=== PATIENT | female | born 2000 | race African-American/Black ===

== ENCOUNTER 2024-10-03 03:44 | Emergency (ER) | payer SELFPAY ==
[~2024-10-03] VITALS: Ht 167.6 cm; Wt 100.0 kg
[2024-10-03 03:48] VITALS: O2SAT 99
[2024-10-03] MEDS: CYCLOBENZAPRINE 10MG TABLET PO ONE (04:27)
[2024-10-03] MEDS: IBUPROFEN 800MG TABLET PO ONE (04:28)
[2024-10-03 04:30] LABS: CHLORIDE 107 mEq/L (98-107); POTASSIUM 3.8 mEq/L (3.5-5.1); SODIUM 143 mEq/L (136-145)
[2024-10-03 04:31] LABS: CARBON DIOXIDE 30 mEq/L (21-32)
[2024-10-03 04:36] LABS: CREATININE 0.9 mg/dL (0.6-1.0); GLUCOSE 84 mg/dL (70-105)
[2024-10-03 04:37] LABS: UREA NITROGEN BLOOD 7 mg/dL (9-23)
[2024-10-03] MEDS ORDERED: CYCL10TA21 MT (04:55)
[2024-10-03] MEDS ORDERED: NAPR-1176 MT (04:55)
[2024-10-03 05:29] VITALS: BP 101/63; PULSE 90; RESP 15; TEMP 36.6; O2SAT 95
== END 2024-10-03 05:29 | disposition home or self-care (01) ==
LOC: ER 03:44
DX: M79.604 Pain in right leg (principal); M79.605 Pain in left leg
CPT/HCPCS: 36415; 80048; 93970; 99284

== ENCOUNTER 2025-01-16 14:04 | Emergency (ER) | payer MEDICAID, OTHER ==
[~2025-01-16] VITALS: Ht 172.7 cm; Wt 110.0 kg
[~2025-01-16 14:04] MED LIST: APIX5TAB MT; HYDR200T80 MT; P20 MT
[2025-01-16 14:14] VITALS: O2SAT 99
[2025-01-16] MEDS: METOCLOPRAMIDE HCL 10MG/2ML VIAL IV ONE (15:45)
[2025-01-16] MEDS ORDERED: METHYLPREDNISOLONE 40MG/ML INJ IV ONE (15:45)
[2025-01-16] MEDS: SODIUM CHLORIDE 0.9% 1,000 ML IV ONE (15:45)
[2025-01-16 16:26] LABS: BASOPHILS % 0.4 % (0.0-2.0); EOSINOPHILS % 0.3 % (0.0-5.0); HEMATOCRIT. 39.0 % (36.0-48.0); HEMOGLOBIN. 12.5 g/dL (12.0-16.0); LYMPHOCYTES % 11.9 % (20.0-50.0); MEAN PLATELET VOLUME 8.3 fl (7.4-10.4); MONOCYTES % 4.1 % (2.0-8.0); NEUTROPHILS % 83.3 % (40.0-76.0); PLATELET 311 x1000/uL (130-400); RED BLOOD CELL COUNT 4.87 mill/uL (4.2-5.4); RED CELL DISTRIBUTION WIDTH 16.2 % (11.6-14.6)
[2025-01-16 16:42] LABS: CREATININE 1.0 mg/dL (0.6-1.0); TROPONIN I HIGH SENSITIVITY < 4 ng/L (3.0-34); UREA NITROGEN BLOOD 10 mg/dL (9-23)
[2025-01-16 16:44] LABS: ASPARTATE AMINOTRANSFERASE 13 IU/L (<34); BILIRUBIN DIRECT < 0.1 mg/dL (<=3.0)
[2025-01-16 16:45] LABS: BILIRUBIN TOTAL 0.3 mg/dL (0.1-1.0); PROTEIN TOTAL 7.7 g/dL (6.0-8.3)
[2025-01-16 17:03] LABS: HCG SCREEN NEGATIVE
[2025-01-16] MEDS: ACETAMINOPHEN 500MG TABLET PO ONE (17:10)
[2025-01-16] MEDS: KETOROLAC 15MG/ML VIAL IV ONE (17:10)
[2025-01-16] MEDS: DIPHENHYDRAMINE 50MG/ML VIAL IV ONE (17:10)
[2025-01-16] MEDS: METHYLPREDNISOLONE SOD SUCC 125MG/2ML (ACT-O-VIAL) IV SCH (17:10)
[2025-01-16 17:17] VITALS: TEMP 36.6; O2SAT 100
[2025-01-16] MEDS ORDERED: CLONIDINE 0.1MG TABLET PO PRN (20:00)
[2025-01-16] MEDS ORDERED: NALOXONE HCL 0.4MG/ML VIAL IV PRN (20:00)
[2025-01-16] MEDS ORDERED: ONDANSETRON HCL 4MG/2ML INJ IV PRN (20:00)
[2025-01-16] MEDS ORDERED: ACETAMINOPHEN 325MG TABLET PO PRN (20:00)
[2025-01-16] MEDS ORDERED: SODIUM CHLORIDE 0.9% 1,000 ML IV SCH (20:00)
[2025-01-16] MEDS ORDERED: CEFTRIAXONE 1GM/50ML 50 ML IV SCH (20:00)
[2025-01-16] MEDS ORDERED: MAGNESIUM/ALUMINUM HYDROXIDE/SIMETHICONE 30ML UDC PO PRN (20:00)
[2025-01-16] MEDS ORDERED: HYDROCODONE/ACETAMINOPHEN 5/325MG TABLET PO PRN (20:00)
[2025-01-16] MEDS ORDERED: MORPHINE SULFATE 2 MG/ML INJ (NOT FOR IM USE) IV PRN (20:00)
[2025-01-16] MEDS ORDERED: KETOROLAC 30MG/ML VIAL IV SCH (20:00)
[2025-01-16] MEDS ORDERED: PREDNISONE 20MG TABLET PO SCH (20:00)
[2025-01-16] MEDS ORDERED: ENOXAPARIN 40MG/0.4ML SYR SUBCUT SCH (20:00)
[2025-01-16] MEDS ORDERED: HYDROXYCHLOROQUINE SULFATE 200MG TABLET PO SCH (21:00)
[2025-01-16] MEDS ORDERED: ZOLPIDEM TARTRATE 5MG TABLET PO PRN (21:00)
[2025-01-16] MEDS ORDERED: APIXABAN 5 MG TABLET PO SCH (21:00)
[2025-01-16 22:54] VITALS: BP 147/82; PULSE 85; RESP 16; TEMP 97.88
[2025-01-17] MEDS ORDERED: PANTOPRAZOLE SODIUM 40 MG/VIAL IV SCH (09:00)
== END 2025-01-16 23:00 | disposition left against medical advice (07) ==
LOC: ER 14:12 → EDBEDREQ 15:49 → EDBEDREQTM 18:39 → EDBEDREQSVC 18:39 → EDBEDREQ 18:39 → CANBEDREQ 20:19 → ER 23:00
DX: M32.9 Systemic lupus erythematosus, unspecified (principal); R51.9 Headache, unspecified; Z79.899 Other long term (current) drug therapy
CPT/HCPCS: 99285; 70450; 96374; 96375; 96361; 80076; 80048; 84703; 83880; 83690; 83735; 85025; 84484; 36415; 74176; 93005; J1885; J2919; J1200; J2765; J7030